=== PATIENT | male | born 1995 | race Two or more races ===

== ENCOUNTER 2020-06-18 16:09 | Outpatient (REF) | payer MEDICARE, MEDICAID, SELFPAY | END 2020-06-18 16:10 | disposition home or self-care (01) | LOC: HO.LAB 16:09 | PROVIDERS: Visit Provider Nurse Practitioner Family | DX: Z20.828 Contact with and (suspected) exposure to other viral communicable diseases (principal) | CPT/HCPCS: U0003 ==

== ENCOUNTER 2021-07-23 16:49 | Outpatient (REF) | payer MEDICARE, MEDICAID, SELFPAY ==
[2021-07-23 18:00] LABS: Influenza A PCR POSITIVE (Negative); Influenza B PCR NEGATIVE (Negative); Resp Syncy Virus RNA Qual PCR NEGATIVE (Negative); SARS COV2 PCR INHOUSE POSITIVE (Negative)
== END 2021-07-23 16:50 | disposition home or self-care (01) ==
LOC: HO.LNP 16:49
PROVIDERS: Visit Provider Physician Assistant
DX: Z20.822 Contact with and (suspected) exposure to COVID-19 (principal); B34.9 Viral infection, unspecified
CPT/HCPCS: 0241U

== ENCOUNTER 2024-01-28 10:24 | Outpatient (AMB) | payer MEDICARE, MEDICAID, SELFPAY ==
[2024-01-28 10:30] VITALS: BP 186/140; PULSE 78; O2SAT 98; BMI 31.6
--- NOTE | 2024-01-28 10:30 | MHC.PC.OV ---
Vital Signs 01/28/24 10:30 Height 5 ft 8 in Weight 208 lb BMI 31.6 BP 186/140 H Blood Pressure Location Lt brachial Position Sitting Pulse 78 Pulse Source Pulse Oximeter Pulse Oximetry (%) 98 Oxygen Delivery Method Room Air Intake Visit Reasons: NF PT'S-BLOOD PRESSUE 210/132 Corporate Wellness Coordinator Required: No Allergies No Known Allergies Allergy (Verified 01/28/24 11:07) Medication List - Last Reconciled 01/28/24 by Alirio Vargas MD blood pressure monitor As directed Tobacco use date assessed: 01/28/24 Dental Screening Dental Screen Date: 01/28/24 HPI NF PT'S-BLOOD PRESSUE 210/132 HPI Details Patient comes in today for persistently elevated blood pressure readings lately He used to take HCTZ 12.5 mg QD but has not been back for follow up since his last appointment with his PCP (Luther Pastor) on 02/04/2021 States that he has not been taking his BP med since mid 2020 when his Rx ran out Recently has been getting high BP readings and at one time, it was as high as 210/132 mm, which prompted him to call and ask for an appointment He reports that he has a strong family Hx of high blood pressure and that both of his parents have high blood pressure and are on blood pressure meds States that he feels okay and denies any headaches or dizziness Denies any chest pains, no SOB No nausea/vomiting, no abdominal pain No change in bowel habits noted [facility] Medical History (Updated 01/28/24 @ 11:21 by Alirio Vargas MD) Obesity (BMI 30-39.9) Essential (primary) hypertension Surgical History (Updated 01/28/24 @ 11:20 by Alirio Vargas MD) No pertinent past surgical history Family History Father Hypertension Mother Hypertension Social History Housing: Apartment Alcohol intake: current Alcohol intake frequency: holidays/special occasions only Patient Tobacco Use Status: Never used Tobacco e-Cigarette/Vaping Use: Never Used Second Hand Smoke Exposure: Yes service: No Current occupational status: employed Current occupation: [employer] Cognitive needs: No Hearing needs: No Vision needs: No Questionnaire PHQ-9 Over the last 2 weeks, how often have you been bothered by any of the following problems? 1. Little interest or pleasure in doing things: not at all 2. Feeling down, depressed, or hopeless: not at all 3. Trouble falling or staying asleep, or sleeping too much: not at all 4. Feeling tired or having little energy: not at all 5. Poor appetite or overeating: not at all 6. Feeling bad about yourself - or that you are a failure or have let yourself or your family down: not at all 7. Trouble concentrating on things, such as reading the newspaper or watching television: not at all 8. Moving or speaking so slowly that other people could have noticed. Or the opposite - being so fidgety or restless that you have been moving around a lot more than usual: not at all 9. Thoughts that you would be better off or of hurting yourself in some way: not at all Total score: 0 Depression Screening Interpretation: Negative Depression Screening Done: Yes 00491 - PHQ-9 Billing: Yes Source: Developed by Drs. Wilson Sanchez, Genie Perez, Arnoldo Lubin and colleagues, with an educational samia from [employer] Thrive Questionnaire Date Thrive assessed: 01/28/24 I am a: Patient What is your living situation today?: I have a steady place to live Within the past 12 months, did the food you bought not last and you didn't have the money to get more?: Never true Within the past 12 months, did you worry whether your food would run out before you got money to buy more?: Never true Do you have trouble paying for medicines?: No Do you have trouble getting transportation to medical appointments?: No Do you have trouble paying your heating and electricity bill?: No Do you have trouble taking care of your child, family member or friend?: No Do you have trouble with day-to-day activities such as bathing, preparing meals, shopping, managing finances, etc.?: No Are you currently unemployed and looking for a job?: No Are you interested in more education?: No Please select the resources that you would like help with: None Currently or been in a relationship where the following occur: No concerns reported THRIVE Score: 0 AUDIT C Alcohol Use Questionnaire (AUDIT-C) 1. How often do you have a drink containing alcohol?: Never 3. How often do you have six or more drinks on one occasion?: Never Total Score: 0 Score Reviewed/Action Taken: Yes CHARITY-7 AMB Questionnaire CHARITY-7 Date CHARITY - 7 assessed: 01/28/24 Feeling nervous, anxious, or on edge: 0 = Not at all Not being able to stop or control worryin = Not at all Worrying too much about different things: 0 = Not at all Trouble relaxin = Not at all Being so restless that it is hard to sit still: 0 = Not at all Becoming easily annoyed or irritable: 0 = Not at all Feeling afraid as if something awful might happen: 0 = Not at all Total CHARITY-7 score (0-4 normal; 5-9 mild; 10-14 moderate; 15-21 severe): 0 Source: Developed by Drs. Wilson Sanchez, Genie Perez, Arnoldo Lubin and colleagues, with an educational samia from [employer] CHARITY-7 Assessment Billing CHARITY-7 Assessment Tool: CHARITY-7 Assessment 14457 Review of Systems Const Denies chills, Denies fatigue, Denies fever(s) and Denies headache(s) ENT Denies dysphagia, Denies dizziness, Denies otalgia, Denies headache(s), Denies neck pain, Denies odynophagia and Denies sore throat Card Denies chest pain, Denies palpitations and Denies dyspnea Resp Denies cough and Denies dyspnea GI Denies abdominal pain, Denies constipation, Denies dysphagia, Denies heartburn, Denies diarrhea, Denies nausea, Denies odynophagia and Denies vomiting Denies dysuria and Denies nocturia Musc Denies neck pain Neuro Denies dizziness and Denies headache(s) Endo Denies fatigue and Denies palpitations Physical exam (Primary Care) Vital Signs: Last Vital Signs Pulse 78 01/28/24 10:30 BP 186/140 H 01/28/24 10:30 Pulse Ox 98 01/28/24 10:30 Oxygen Delivery Method Room Air 01/28/24 10:30 BMI result Body Mass Index 31.6 Tobacco/Smoking Status: Tobacco use Status Tobacco use date assessed 01/28/24 01/28/24 10:31 Patient Tobacco Use Status Never used Tobacco 01/28/24 10:31 e-Cigarette/Vaping Use Never Used 01/28/24 10:31 PHQ-9: PHQ-9 Score PHQ-9: Total score 0 01/28/24 10:45 Depression Screening Interpretation: Negative Thrive Assessment: Date of Thrive Assessment Date Thrive assessed 02/04/21 01/28/24 10:31 Currently or been in a relationship where the following occur: No concerns reported Const General: no acute distress and alert HENMT Throat: Yes posterior oropharynx normal and Yes tonsils normal (no TP congestion) Neck Neck: Yes no lymphadenopathy and Yes supple Thyroid: Thyroid normal Resp Auscultation: clear to auscultation bilaterally, no rales and no wheezes Cardio Rate: regular rate Rhythm: regular rhythm Heart sounds: no murmurs GI Palpation (GI): Soft to palpation and nontender Auscultation: normal bowel sounds General: Yes no CVA tenderness Back/Spine/Pelvis Back: no CVA tenderness Thoracic/Lumbar Spine: thoracic and lumbar spine normal to inspection Skin Rashes: no rashes Extrem General: Yes no clubbing, cyanosis or edema Assessment and Plan Assessment & Plan (1) Essential (primary) hypertension: Code(s): I10 - Essential (primary) hypertension Plan: Reinforced low sodium diet - goal is BP of 120/80 mm or less Have discussed with patient the dangers/implications and long-term health consequences of uncontrolled blood pressure and emphasized the importance of BP control Will start patient on Lisinopril-HCT 10-12.5 mg QD He is instructed to continue monitoring his blood pressure regularly (2) Obesity (BMI 30-39.9): Code(s): E66.9 - Obesity, unspecified Plan: Reinforced diet/exercise as tolerated/lose weight Plan Follow up with PCP in 2 to 3 months Medications: New lisinopril-hydrochlorothiazide 10-12.5 mg 1 tab PO DAILY 30 days 30 tabs 3RF I10 - Essential (primary) hypertension Coding Level of Care Code Est Pt Level 3 (25102) Diagnoses Essential (primary) hypertension I10 Obesity (BMI 30-39.9) E66.9 Additional Codes CHARITY-7 Assessment Billing - CHARITY-7 Assessment Tool: CHARITY-7 Assessment 39804 ([id number])
== END 2024-01-28 11:17 | disposition home or self-care (01) ==
PROVIDERS: PCP Physician Assistant; Visit Provider Internal Medicine
DX: I10 Essential (primary) hypertension (principal); E66.9 Obesity, unspecified; Z68.31 Body mass index [BMI] 31.0-31.9, adult
CPT/HCPCS: 99213

== ENCOUNTER 2024-04-20 14:48 | Outpatient (AMB) | payer MEDICARE, MEDICAID, SELFPAY ==
--- NOTE | 2024-04-20 14:49 | MHC.PC.OV ---
Intake Visit Reasons: 2/3 Month F/U Allergies No Known Allergies Allergy (Verified 01/28/24 11:07) Tobacco use date assessed: 01/28/24 Dental Screening Dental Screen Date: 01/28/24 [facility] Medical History (Updated 01/28/24 @ 11:21 by Alirio Vargas MD) Obesity (BMI 30-39.9) Essential (primary) hypertension Surgical History (Updated 01/28/24 @ 11:20 by Alirio Vargas MD) No pertinent past surgical history Family History Father Hypertension Mother Hypertension Social History Housing: Apartment Alcohol intake: current Alcohol intake frequency: holidays/special occasions only Patient Tobacco Use Status: Never used Tobacco e-Cigarette/Vaping Use: Never Used Second Hand Smoke Exposure: Yes service: No Current occupational status: employed Current occupation: [employer] Cognitive needs: No Hearing needs: No Vision needs: No Questionnaire Thrive Questionnaire Date Thrive assessed: 01/28/24 Are you currently unemployed and looking for a job?: No CHARITY-7 AMB Questionnaire CHARITY-7 Date CHARITY - 7 assessed: 01/28/24 Source: Developed by Drs. Wilson Sanchez, Genie Perez, Arnoldo Lubin and colleagues, with an educational samia from [employer]. Physical exam (Primary Care) Tobacco/Smoking Status: Tobacco use Status Tobacco use date assessed 01/28/24 01/28/24 10:31 Patient Tobacco Use Status Never used Tobacco 01/28/24 10:31 e-Cigarette/Vaping Use Never Used 01/28/24 10:31 Thrive Assessment: Date of Thrive Assessment Date Thrive assessed 01/28/24 01/28/24 11:12 Coding
[2024-04-20 14:53] VITALS: BP 130/82; PULSE 68; O2SAT 99; BMI 32.7
--- NOTE | 2024-04-20 14:57 | A.OFFVIS_ITS ---
Intake Vital Signs 04/20/24 14:53 04/20/24 15:02 Height 5 ft 8 in Weight 215 lb BMI 32.7 32.7 BP 130/82 Blood Pressure Location Lt brachial Position Sitting Pulse 68 Pulse Source Pulse Oximeter Pulse Oximetry (%) 99 Oxygen Delivery Method Room Air Intake Visit Reasons: PE Intake Note: Patient is here for an Annual Wellness Visit and BP F/U. Instrumentation Specialist Required: No Accompanied by: Self / Same As Patient Allergies No Known Allergies Allergy (Verified 04/20/24 15:02) Medication List - Last Reconciled 04/20/24 by Crow Pastor PA-C blood pressure monitor As directed lisinopril-hydrochlorothiazide 10-12.5 mg 1 tab PO DAILY 30 days HPI PE HPI Details Patient is a 28-year-old male here today for annual wellness visit. Patient's past medical history significant for hypertension Today we discussed patient's tangirnaq of care and end of life planning. We did discuss and review his comprehensive care plan which was skin to documents Vaccines: Patient is up-to-date with tetanus, and COVID vaccines, now willing to get flu vaccine HPI Comments History of Present Illness Details reviewed past medical history- yes reviewed surgical / hospitalization history- yes reviewed current medications- yes reviewed family history- yes home safety throw rugs? grab bars? raised toilet seat? working smoke detectors? activities of daily living difficulty bathing or showering? difficulty dressing? difficulty using the toilet? difficulty getting in and out of bed? difficulty walking? receives help from other person's with any of the above tasks? instrumental activities of daily living uses telephone - gets to place out of walking distance- go shopping for groceries- repairs own meals- does own minor home maintenance- does own laundry- does own housework- manages own money- currently takes medication- end of life planning discussed advanced directives- yes advanced directives on file? discussed wishes expressed in advanced directives. fall risk have you had any falls with injuries in the past year? have you had 2 or more falls in the past year? fall risk assessment: [facility] Medical History (Updated 04/20/24 @ 15:07 by Crow Pastro PA-C) Obesity (BMI 30-39.9) Essential (primary) hypertension Surgical History No pertinent past surgical history Family History Father Hypertension Mother Hypertension Social History Housing: Apartment Alcohol intake: current Alcohol intake frequency: holidays/special occasions only Patient Tobacco Use Status: Never used Tobacco e-Cigarette/Vaping Use: Never Used Second Hand Smoke Exposure: Yes service: No Current occupational status: employed Current occupation: [employer] Cognitive needs: No Hearing needs: No Vision needs: No Questionnaire Mini Mental State Exam (MMSE) Orientation What is the (year) (season) (date) (day) (month)?: year and season Where are we (state) (county) (town or city) (hospital) (floor)?: town or city Attention & Calculation (CHOOSE ONE) Spell WORLD backwards (DLROW): 3 letters Score Score: 6 Activity of Daily Living Bathing - sponge bath, tub bath or shower: receives no assistance (gets in/out by self, if usual bathing means Dressing - getting clothes from closets & drawers, including inner/outer garments & fasteners.: gets clothes & gets completely dressed without help Toileting - going to the 'toilet room' for urine/bowel elimination & cleaning self/arranging clothes: goes to toilet room, cleans self, arranges clothes without help Transfer: moves in & out of bed and chair without help (may use support object) Continence: controls urination/bowel movements completely by self Feeding: feeds self without help Total Score: 0 Information obtained from: patient Using telephone: independent Traveling: independent Shopping: independent Preparing meals: independent Housework: independent Taking medicine: independent Managing money: independent PHQ-9 Over the last 2 weeks, how often have you been bothered by any of the following problems? 1. Little interest or pleasure in doing things: not at all 2. Feeling down, depressed, or hopeless: not at all 3. Trouble falling or staying asleep, or sleeping too much: not at all 4. Feeling tired or having little energy: not at all 5. Poor appetite or overeating: not at all 6. Feeling bad about yourself - or that you are a failure or have let yourself or your family down: not at all 7. Trouble concentrating on things, such as reading the newspaper or watching television: not at all 8. Moving or speaking so slowly that other people could have noticed. Or the opposite - being so fidgety or restless that you have been moving around a lot more than usual: not at all 9. Thoughts that you would be better off or of hurting yourself in some way: not at all Total score: 0 Depression Screening Interpretation: Negative Depression Screening Done: Yes 84359 - PHQ-9 Billing: Yes Source: Developed by Drs. Wilson Sanchez, Genie Perez, Arnoldo Lubin and colleagues, with an educational samia from [employer]. Physical Exam Vital Signs: Last Vital Signs Pulse 68 04/20/24 14:53 BP 130/82 04/20/24 14:53 Pulse Ox 99 04/20/24 14:53 Oxygen Delivery Method Room Air 04/20/24 14:53 BMI result Body Mass Index 32.7 HEENT Other: hearing screening whisper test- pass Eyes Other: vision screening- 20 20 OS OD OU Other: urinary incontinence? no Neuro Other: balance Romberg- normal tandem walk test- able walk-in turned test- able rise from sit to stand- within 2 seconds Office Procedures Flu Questionnaire Does the patient have a severe egg allergy?: No Does the patient have severe life threatening allergies?: No Does the patient have a fever or illness today?: No Has the patient ever had Guillain-[place] Syndrome?: No Has the patient ever had any past reaction to a flu shot?: No Immunizations Fluarix Triv 8211-9163 (PF) 45 mcg (15 mcg x 3)/0.5 mL IM syringe Performing Provider: Crow Pastor PA-C [place] [facility] [place] [facility] Administered by: DUTCH Castle on 04/20/24 15:29 Dose Route Admin Location Dispensed Lot Number Expiration Date [facility] Retail Shift Leader 0.5 mL IM Left Deltoid 0.5 mL [id number] 01/16/25 [id number] Health Plan One VIS Given Date VIS Provided VIS Publication Date 04/20/24 Single Vaccine 21 Eligibility Eligibility Date Funding Source Not [facility] Eligible 04/20/24 Private Assessment & Plan Assessment & Plan (1) Annual wellness visit: Code(s): Z00.00 - Encounter for general adult medical examination without abnormal findings Plan: as per HPI Orders: Orders Complete Blood Count no Diff Today I10 - Essential (primary) hypertension Comprehensive [place]. Panel Fast Today I10 - Essential (primary) hypertension Lipid Panel Today I10 - Essential (primary) hypertension Microalbumin, Random (w Creat) Today I10 - Essential (primary) hypertension Influenza 5451-5600 Immunization Today Z23 - Encounter for immunization Quality Reporting (2019) Depression/Bipolar (159/160/161/177) PHQ-9: Total score: 0 Coding Level of Care Code Medicare First (G0438) Diagnoses Annual wellness visit Z00.00 CPT Codes Advance Care Planning - Time spent: 1-15 minutes, not on file ([id number]) Advance Care Planning Advance Care Planning discussion: Exists, not on file Date of discussion: 04/20/24 Forms completed: MOLST Time spent: 1-15 minutes, not on file Actual minutes spent: 3
[2024-04-20 15:02] VITALS: BMI 32.7
== END 2024-04-20 15:30 | disposition home or self-care (01) ==
PROVIDERS: PCP Physician Assistant; Visit Provider Physician Assistant
DX: Z00.00 Encounter for general adult medical examination without abnormal findings (principal); Z23 Encounter for immunization

== ENCOUNTER → 2024-04-20 14:48 | Outpatient (BNVA) | payer MEDICARE, MEDICAID, SELFPAY | PROVIDERS: PCP Physician Assistant; Visit Provider Physician Assistant | DX: Z00.00 Encounter for general adult medical examination without abnormal findings (principal); Z23 Encounter for immunization; I10 Essential (primary) hypertension | CPT/HCPCS: 90471; 90656 ==

== ENCOUNTER 2024-09-08 10:39 | Outpatient (AMB) | payer MEDICARE, MEDICAID, SELFPAY ==
--- NOTE | 2024-09-08 10:41 | MHC.PC.OV ---
Vital Signs 09/08/24 10:46 Height 5 ft 8 in Weight 215 lb 4 oz BMI 32.7 BP 180/130 H Blood Pressure Location Lt brachial Position Sitting Pulse 66 Pulse Source Pulse Oximeter Temp 97.1 F Temp Source Temporal Artery Scan Pulse Oximetry (%) 98 Oxygen Delivery Method Room Air Intake Visit Reasons: Fever , cold ,sorethroat Intake Note: Patient presents with a sore throat for the past two days, accompanied by a runny nose and generalized weakness. Radio Communications Mechanician Required: No Accompanied by: Self / Same As Patient Allergies No Known Allergies Allergy (Verified 09/08/24 10:57) Medication List - Last Reconciled 09/08/24 by Crow Pastor PA-C blood pressure monitor As directed lisinopril-hydrochlorothiazide 10-12.5 mg 1 tab PO DAILY Tobacco use date assessed: 09/08/24 Dental Screening Dental Screen Date: 01/28/24 HPI Fever , cold ,sorethroat HPI Details The patient is a 29-year-old male presenting with symptoms suggestive of a viral upper respiratory infection. Symptoms began approximately two days prior to the visit and include an itchy sensation in the ears, severe throat pain, nasal congestion, and episodic headaches. He also reports that his blood pressure has been elevated. There has been no known exposure to sick contacts at home. The patient has a history of essential hypertension for which he takes lisinopril with hydrochlorothiazide; however, he is running low on this medication and has approximately two days' supply remaining. He monitors his blood pressure with a manual cuff but questions its accuracy. The patient expresses concern about increasing the dose of his antihypertensive medication despite experiencing elevated blood pressure readings. [facility] Medical History (Updated 09/08/24 @ 11:00 by Crow Pastor PA-C) Obesity (BMI 30-39.9) Essential (primary) hypertension Surgical History No pertinent past surgical history Family History Father Hypertension Mother Hypertension Social History Housing: Apartment Alcohol intake: current Alcohol intake frequency: holidays/special occasions only Patient Tobacco Use Status: Never used Tobacco e-Cigarette/Vaping Use: Never Used Second Hand Smoke Exposure: Yes service: No Current occupational status: employed Current occupation: [employer] Cognitive needs: No Hearing needs: No Vision needs: No Questionnaire PHQ-9 Over the last 2 weeks, how often have you been bothered by any of the following problems? 1. Little interest or pleasure in doing things: not at all 2. Feeling down, depressed, or hopeless: not at all 3. Trouble falling or staying asleep, or sleeping too much: not at all 4. Feeling tired or having little energy: not at all 5. Poor appetite or overeating: not at all 6. Feeling bad about yourself - or that you are a failure or have let yourself or your family down: not at all 7. Trouble concentrating on things, such as reading the newspaper or watching television: not at all 8. Moving or speaking so slowly that other people could have noticed. Or the opposite - being so fidgety or restless that you have been moving around a lot more than usual: not at all 9. Thoughts that you would be better off or of hurting yourself in some way: not at all Total score: 0 Depression Screening Interpretation: Negative Depression Screening Done: Yes 63103 - PHQ-9 Billing: Yes Source: Developed by Drs. Wilson Sanchez, Genie Perez, Arnoldo Lubin and colleagues, with an educational samia from [employer]. Thrive Questionnaire Date Thrive assessed: 09/08/24 I am a: Patient What is your living situation today?: I have a steady place to live Within the past 12 months, did the food you bought not last and you didn't have the money to get more?: Never true Within the past 12 months, did you worry whether your food would run out before you got money to buy more?: Never true Do you have trouble paying for medicines?: No Do you have trouble getting transportation to medical appointments?: No Do you have trouble paying your heating and electricity bill?: No Do you have trouble taking care of your child, family member or friend?: No Do you have trouble with day-to-day activities such as bathing, preparing meals, shopping, managing finances, etc.?: No Are you currently unemployed and looking for a job?: No Are you interested in more education?: No Please select the resources that you would like help with: None Currently or been in a relationship where the following occur: No concerns reported THRIVE Score: 0 AUDIT C Alcohol Use Questionnaire (AUDIT-C) 1. How often do you have a drink containing alcohol?: Never 3. How often do you have six or more drinks on one occasion?: Never Total Score: 0 Score Reviewed/Action Taken: Yes CHARITY-7 AMB Questionnaire CHARITY-7 Date CHARITY - 7 assessed: 09/08/24 Feeling nervous, anxious, or on edge: 0 = Not at all Not being able to stop or control worryin = Not at all Worrying too much about different things: 0 = Not at all Trouble relaxin = Not at all Being so restless that it is hard to sit still: 0 = Not at all Becoming easily annoyed or irritable: 0 = Not at all Feeling afraid as if something awful might happen: 0 = Not at all Total CHARITY-7 score (0-4 normal; 5-9 mild; 10-14 moderate; 15-21 severe): 0 Source: Developed by Drs. Wilson Sanchez, Genie Perez, Arnoldo Lubin and colleagues, with an educational samia from [employer]. CHARITY-7 Assessment Billing CHARITY-7 Assessment Tool: CHARITY-7 Assessment 08845 Review of Systems Const Reports headache(s) Eyes Denies loss of vision ENT Denies vertigo, Denies dizziness, Reports headache(s), Reports nasal congestion and Reports sore throat Card Denies chest pain, Denies leg edema and Denies lightheadedness Resp Denies cough, Denies hemoptysis and Denies wheezing GI Denies abdominal pain, Denies melena, Denies constipation, Denies diarrhea and Denies vomiting Denies dysuria, Denies urinary frequency and Denies urinary urgency Musc Denies arthralgias, Denies joint swelling, Denies numbness and Denies tingling Neuro Denies Abnormal speech present, Denies behavioral changes, Denies vertigo, Denies dizziness, Reports headache(s), Denies loss of vision, Denies memory loss, Denies numbness and Denies tingling Psych Denies anxiety, Denies behavioral changes, Denies depression, Denies memory loss and Denies panic attacks Edwin/Lymph Denies easy bleeding and Denies easy bruising Aller/Immun Denies wheezing Physical exam (Primary Care) Vital Signs: Last Vital Signs Temp 97.1 F 09/08/24 10:46 Pulse 66 09/08/24 10:46 BP 180/130 H 09/08/24 10:46 Pulse Ox 98 09/08/24 10:46 Oxygen Delivery Method Room Air 09/08/24 10:46 BMI result Body Mass Index 32.7 Tobacco/Smoking Status: Tobacco use Status Tobacco use date assessed 09/08/24 09/08/24 10:42 Patient Tobacco Use Status Never used Tobacco 09/08/24 10:41 e-Cigarette/Vaping Use Never Used 09/08/24 10:41 PHQ-9: PHQ-9 Score PHQ-9: Total score 0 09/08/24 10:42 Depression Screening Interpretation: Negative Thrive Assessment: Date of Thrive Assessment Date Thrive assessed 09/08/24 09/08/24 10:42 Currently or been in a relationship where the following occur: No concerns reported Const General: healthy appearing, no acute distress, alert and awake Nutritional Appearance: well nourished Orientation/consciousness: oriented to person, oriented to place and oriented to time HENMT Ears: TM's normal bilaterally General nose exam: Normal nasal mucous membranes and turbinates present Eyes Conjunctivae: conjunctivae normal Sclerae: sclerae normal Pupils: Equal, round and reactive pupils present Neck Neck: Yes no lymphadenopathy and Yes no JVD Thyroid: Thyroid normal Carotids: no bruits Resp Effort & Inspection: normal respiratory effort and not tachypneic Auscultation: no crackles, no rales, no rhonchi and no wheezes Cardio Rate: regular rate Rhythm: regular rhythm Heart sounds: no murmurs and normal S1 and S2 GI Palpation (GI): Soft to palpation, nontender, no hepatomegaly and no splenomegaly Auscultation: normal bowel sounds Skin General skin exam: no rashes or lesions noted and dry skin Neuro General: oriented to person, oriented to place and oriented to time Cranial nerves: Yes Equal, round and reactive pupils present Speech: No Abnormal speech present Gait exam (Neuro): Normal gait present Motor exam (neuro): no tremor noted Extrem Right upper extremity: full ROM Left upper extremity: full ROM Right lower extremity: full ROM; no edema Left lower extremity: full ROM; no edema Psych Mental Status: mental status grossly normal Speech and movement: Normal speech and movement present Affect: normal affect Attitude: cooperative Thought process: Normal thought process present Coding Level of Care Code Est Pt Level 4 (81642) Diagnoses Viral upper respiratory tract infection J06.9 URI type: unspecified viral URI Primary hypertension I10 Hypertension type: primary hypertension Additional Codes CHARITY-7 Assessment Billing - CHARITY-7 Assessment Tool: CHARITY-7 Assessment 54404 ([id number]) PHQ-9 - 82931 - PHQ-9 Billing: Yes ([id number]) Assessment & Plan Assessment & Plan (1) Upper respiratory infection: Code(s): J06.9 - Acute upper respiratory infection, unspecified Category: Medical Qualifiers: URI type: unspecified viral URI Qualified Code(s): J06.9 - Acute upper respiratory infection, unspecified Plan: Patient's signs symptoms most consistent with an upper respiratory infection. Triple tested for viruses today in office. Rapid strep negative. Will prophylactically prescribe amoxicillin 875 mg b.i.d. (2) HTN (hypertension): Code(s): I10 - Essential (primary) hypertension Category: Medical Qualifiers: Hypertension type: primary hypertension Qualified Code(s): I10 - Essential (primary) hypertension Plan: We discussed patient's elevated blood pressure. Elevated blood pressure can be also in the setting of his acute illness.. Has been using his blood pressure medication prior somewhat regularly. We discussed the possibility of increasing his lisinopril and hydrochlorothiazide dose. Discussed the management of hypertension, including continuing current medication with refills and considering an increased dosage if blood pressure readings remain elevated. We agreed on a low-sodium diet and the importance of monitoring blood pressure with a reliable device. Goal blood pressures to be below 140/90 Orders: Orders SARS-CoV2/FLU/RSV Today J06.9 - Acute upper respiratory infection, unspecified AMB Rapid Strep Screen Today J02.9 - Acute pharyngitis, unspecified Medications: New amoxicillin 875 mg PO BID 7 days 14 tabs 0RF J06.9 - Acute upper respiratory infection, unspecified Refilled lisinopril-hydrochlorothiazide 10-12.5 mg 1 tab PO DAILY 90 tabs 1RF I10 - Essential (primary) hypertension blood pressure monitor As directed 1 ea 0RF I10 - Essential (primary) hypertension
[2024-09-08 10:46] VITALS: BP 180/130; PULSE 66; TEMP 36.2; O2SAT 98; BMI 32.7
--- OUTSIDE RECORDS SUMMARY | 2024-09-08 11:49 | XMS_ITS | Encounter Summary ---
Author Organization [facility] Address [address] [place] [address] Phone Care Team Providers Care Metallography Teacher Name Role Phone Quinn Nino MD Primary Care Provider [phone] Encounter Details Date Type Department Care Team (Late st Contact Info) Description 03/05/2017 Conversion Encounter [facility] [place] [address] [place] [address] Social History Tobacco Use Types Packs/Day Years Used Date Smoking Tobacco: Never Comments:Never smoker Sex and Gender Information Value Date Recorded Sex Assigned at Not on file Legal Sex Male 4:51 PM EDT Gender Identity Not on file Sexual Orientation Not on file documented as of this encounter Plan of Treatment Not on file documented as of this encounter Visit Diagnoses Not on filedocumented in this encounter Care Teams Metallography Teacher Relationship Specialty Start Date End Date Quinn Nino MD [address] [place] [address] PCP - General 02/27/17 10/21/22 documented as of this encounter
--- OUTSIDE RECORDS SUMMARY | 2024-09-08 11:49 | XMS_ITS | Encounter Summary ---
Author Organization [facility] Address [address] [place] [address] Phone Care Team Providers Care Pretzel Twisting Machine Operator Name Role Phone Quinn Nino MD Primary Care Provider [phone] Encounter Details Date Type Department Care Team (Late st Contact Info) Description 05/08/2011 Documentation EM Family Medicine [address] [place], [place] [id number] Family Medicine, Physician [address] [place] [address] Social History Tobacco Use Types Packs/Day Years Used Date Smoking Tobacco: Never Assessed Sex and Gender Information Value Date Recorded Sex Assigned at Not on file Legal Sex Male 4:51 PM EDT Gender Identity Not on file Sexual Orientation Not on file documented as of this encounter Plan of Treatment Not on file documented as of this encounter Visit Diagnoses Not on filedocumented in this encounter Care Teams Pretzel Twisting Machine Operator Relationship Specialty Start Date End Date Quinn Nino MD [address] [place] [address] [place] [address] PCP - General 02/27/17 10/21/22 documented as of this encounter
--- OUTSIDE RECORDS SUMMARY | 2024-09-08 11:49 | XMS_ITS | Encounter Summary ---
Author Organization [facility] Address [address] [place] [address] Phone Care Team Providers Care Real Estate Instructor Name Role Phone Quinn Nino MD Primary Care Provider [phone] Encounter Details Date Type Department Care Team (Late st Contact Info) Description 09/28/2009 Documentation EM Family Medicine [address] [place] [address] Family Medicine, Physician [address] [place] [address] Social History Tobacco Use Types Packs/Day Years [...] on filedocumented in this encounter Care Teams Real Estate Instructor Relationship Specialty Start Date End Date Quinn Nino MD [address] [place] [address] [place] [address] PCP - General 02/27/17 10/21/22 documented as of this encounter
--- OUTSIDE RECORDS SUMMARY | 2024-09-08 11:49 | XMS_ITS | Encounter Summary ---
Author Organization [facility] Address [address] [place] [address] Phone Care Team Providers Care Welt Edge Rounder Name Role Phone Quinn Nino MD Primary Care Provider [phone] Encounter Details Date Type Department Care Team (Late st Contact Info) Description 09/28/2009 Documentation EM Family Medicine [address] [place] [address] Family Medicine, Physician [address] [place] [address] Social History Tobacco Use Types Packs/Day Years [...] on filedocumented in this encounter Care Teams Welt Edge Rounder Relationship Specialty Start Date End Date Quinn Nino MD [address] [place] [address] [place] [address] PCP - General 02/27/17 10/21/22 documented as of this encounter
--- OUTSIDE RECORDS SUMMARY | 2024-09-08 11:49 | XMS_ITS | Encounter Summary ---
Author Organization [facility] Address [address] [place] [address] Phone Care Team Providers Care Blacking Machine Operator Name Role Phone Quinn Nino MD Primary Care Provider [phone] Encounter Details Date Type Department Care Team (Late st Contact Info) Description 05/25/2014 Documentation EM Family Medicine [address] [place] [address] Family Medicine, Physician [address] [place] [address] Social History Tobacco Use Types Packs/Day Years [...] on filedocumented in this encounter Care Teams Blacking Machine Operator Relationship Specialty Start Date End Date Quinn Nino MD [address] [place] [address] PCP - General 02/27/17 10/21/22 documented as of this encounter
--- OUTSIDE RECORDS SUMMARY | 2024-09-08 11:49 | XMS_ITS | Clinical Summary ---
Author Organization [facility] Address [address] [place] [address] Phone Care Team Providers Care Design Drafter Name Role Phone Unavailable Primary Care Provider Unavailabl e Immunizations Immunization Administration Dates Next Due DTP 03/13/1995,1994,1994 DTaP 5 11/22/1998,02/11/1996 HPV, Quadrivalent 09/28/2012,10/09/2010 Hep B, ped/adol 08/11/1995,1994,1994 Hib (PRP-T) 11/13/1995, 5,1994, 995 IPV 11/22/1998,199 5,1994, 995 Influenza Split 10/09/2010 Influenza, injectable, trivalent 05/16/2008 Influenza, intranasal, trivalent 09/28/2012,04/19 MMR 11/22/1998,11/10/1995 Meningococcal Conj (Menactra) MCV4P 05/16/2008 Tdap 04/16/2006 Varicella 05/16/2008,05/12/1996 Family History Relation Name Status Comments Brother 1 Alive Brother: Alive and well, Alive and well Brother 2 Alive Brother: Alive and well, Alive and well Father Alive Father: Alive a nd well Mother Alive Mother: Alive a nd well Other Family history of Hyperlipidemia, Family history of Asthma, Family history of Hypertension, Family history of Diabetes mellitus, Family history of Cancer, colon Sister Alive Sister: Alive a nd well Social History Tobacco Use Types Packs/Day Years Used Date Smoking Tobacco: Never Comments:Never smoker Sex and Gender Information Value Date Recorded Sex Assigned at Not on file Legal Sex Male 4:51 PM EDT Gender Identity Not on file Sexual Orientation Not on file Last Filed Vital Signs Vital Sign Reading Time Taken Comments Blood Pressure 138/98 09/28/2012 12:00 AM EDT Pulse - - Temperature 36.6 ??C (97.9 ??F) 04/05/2012 12:00 AM E DT Respiratory Rate - - Oxygen Saturation - - Inhaled Oxygen Concentration - - Weight 97.1 kg (214 lb) 09/28/2012 12:00 AM EDT Height 167.1 cm (5' 5.8 ) 09/28/2012 12:00 AM ED T Body Mass Index 34.75 09/28/2012 12:00 AM EDT Plan of Treatment Health Maintenance Due Date Last Done Comments HPV Vaccines (3 - Male 3-dose series) 12/21/2012 09/28/2012, 10/09/2010 DTaP,Tdap,and Td Vaccines (7 - Td or Tdap) 04/16/2016 04/16/2006, 11/22/1998, 02/11/1996, Additional history exists Influenza Vaccines (#1) 2024 09/29/19 13, 05/06/2011, 10/09/2010, Additional history exists COVID-19 Vaccine ( - 2023- season) 2024 Hepatitis B Vaccines Completed 08/11/1995, 1994, 1994 HIB Vaccines Completed 11/13/1995, 02/18, 1994, Additional history exists IPV Vaccines Completed 11/22/1998, 02/18, 1994, Additional history exists MMR Vaccines Completed 11/22/1998, 11/10/1995 Meningococcal Vaccine Aged Out 05/16/2008 No ramirez paloma eligible based on patient's age to complete this topic Varicella Vaccines Completed 05/16/2008, 05/12/1996 Hepatitis A Vaccines Aged Out No long er eligible based on patient's age to complete this topic Men B Vaccine Aged Out No longer elig ible based on patient's age to complete this topic Pneumococcal Vaccine Aged Out No long er eligible based on patient's age to complete this topic
--- OUTSIDE RECORDS SUMMARY | 2024-09-08 11:49 | XMS_ITS | Clinical Summary ---
Author Organization [facility] Address [address] [place] [address] Care Team Providers Care Automobile Locator Name Role Phone Unavailable Primary Care Provider Unavailabl e Social History Tobacco Use Types Packs/Day Years Used Date Smoking Tobacco: Never Assessed Sex and Gender Information Value Date Recorded Sex Assigned at Not on file Legal Sex Male 4:31 PM EST Gender Identity Not on file Sexual Orientation Not on file Plan of Treatment Health Maintenance Due Date Last Done Comments DTaP,Tdap,and Td Vaccines (1 - Tdap) 2013 Hepatitis B Vaccines (1 of 3 - 19+ 3-dose series) 2013 COVID-19 Vaccine (2023-2 5 season) 2024 Influenza Vaccine (#1) 2024 HIB Vaccines Aged Out No longer eligi ble based on patient's age to complete this topic HPV Vaccines Aged Out No longer eligi ble based on patient's age to complete this topic Hepatitis A Vaccines Aged Out No long er eligible based on patient's age to complete this topic IPV Vaccines Aged Out No longer eligi ble based on patient's age to complete this topic MMR Vaccines Aged Out No longer eligi ble based on patient's age to complete this topic Meningococcal ACWY Vaccine Aged Out N o longer eligible based on patient's age to complete this topic Meningococcal B Vacine Aged Out No lo nger eligible based on patient's age to complete this topic Pneumococcal Vaccine: Pediat rics (0 to 5 Years) and At-Risk Patients (6 to 64 Years) Aged Out No longer eligible b ased on patient's age to complete this topic RSV Immunization Patients Un serafin 20 months Aged Out No longer eligible b ased on patient's age to complete this topic Varicella Vaccines Aged Out No longer eligible based on patient's age to complete this topic
--- OUTSIDE RECORDS SUMMARY | 2024-09-08 11:49 | XMS_ITS | Encounter Summary ---
Author Organization [facility] Address [address] [place] [address] Phone Care Team Providers Care Math Teacher Name Role Phone Qiunn Nino MD Primary Care Provider [phone] Encounter Details Date Type Department Care Team (Late st Contact Info) Description 12/12/2011 Documentation EM Family Medicine [address] [place] [address] Family Medicine, Physician [address] [place] [address] Social History Tobacco Use Types Packs/Day Years [...] on filedocumented in this encounter Care Teams Math Teacher Relationship Specialty Start Date End Date Quinn Nino MD [address] [place] [address] [place] [address] PCP - General 02/27/17 10/21/22 documented as of this encounter
== END 2024-09-08 11:12 | disposition home or self-care (01) ==
LOC: HO.HMCH 10:39
PROVIDERS: PCP Physician Assistant; Visit Provider Physician Assistant
DX: J06.9 Acute upper respiratory infection, unspecified (principal); I10 Essential (primary) hypertension; J02.9 Acute pharyngitis, unspecified

== ENCOUNTER 2024-09-08 10:39 | Outpatient (REF) | payer MEDICARE, MEDICAID, SELFPAY ==
--- OUTSIDE RECORDS SUMMARY | 2024-09-08 13:28 | XMS_ITS | Encounter Summary ---
Author Organization [facility] Address [address] [place] [address] Phone Care Team Providers Care Professor Of Religion Name Role Phone Quinn Nino MD Primary Care Provider [phone] Encounter Details Date Type Department Care Team (Late st Contact Info) Description 12/12/2011 Documentation EM Family Medicine [address] [place] [address] Family Medicine, Physician [address] [place] [address] Social History Tobacco Use Types Packs/Day Years [...] on filedocumented in this encounter Care Teams Professor Of Religion Relationship Specialty Start Date End Date Quinn Nino MD [address] [place] [address] [place] [address] PCP - General 02/27/17 10/21/22 documented as of this encounter
--- OUTSIDE RECORDS SUMMARY | 2024-09-08 13:29 | XMS_ITS | Encounter Summary ---
Author Organization [facility] Address [address] [place] [address] Phone Care Team Providers Care Data Warehousing Engineer Name Role Phone [place] Nino MD Primary Care Provider Encounter Details Date Type Department Care Team (Late st Contact Info) Description 09/28/2009 Documentation EM Family Medicine [address] [place] [address] Family Medicine, Physician [address] [place] [address] Social History Tobacco Use Types Packs/Day Years [...] on filedocumented in this encounter Care Teams Data Warehousing Engineer Relationship Specialty Start Date End Date Quinn Nino MD [address] [place] [address] [place] [address] PCP - General 02/27/17 10/21/22 documented as of this encounter
--- OUTSIDE RECORDS SUMMARY | 2024-09-08 13:29 | XMS_ITS | Encounter Summary ---
Author Organization [facility] Address [address] [place] [address] Phone Care Team Providers Care Plastics Nurse Name Role Phone Quinn Nino MD Primary Care Provider [phone] Encounter Details Date Type Department Care Team (Late st Contact Info) Description 09/28/2009 Documentation EM Family Medicine [address] [place] [address] Family Medicine, Physician [address] [place] [address] Social History Tobacco Use Types Packs/Day Years [...] on filedocumented in this encounter Care Teams Plastics Nurse Relationship Specialty Start Date End Date Quinn Nino MD [address] [place] [address] [place] [address] PCP - General 02/27/17 10/21/22 documented as of this encounter
--- OUTSIDE RECORDS SUMMARY | 2024-09-08 13:29 | XMS_ITS | Encounter Summary ---
Author Organization [facility] Address [address] [place] [address] Phone Care Team Providers Care Bouffant Curtain Machine Tender Name Role Phone uQinn Nino MD Primary Care Provider [phone] Encounter Details Date Type Department Care Team (Late st Contact Info) Description 05/08/2011 Documentation EM Family Medicine [address] [place], [place] [id number] Family Medicine, Physician [address] [place] [address] Social History Tobacco Use Types Packs/Day Years [...] on filedocumented in this encounter Care Teams Bouffant Curtain Machine Tender Relationship Specialty Start Date End Date Quinn Nino MD [address] [place] [address] [place] [id number] PCP - General 02/27/17 10/21/22 documented as of this encounter
--- OUTSIDE RECORDS SUMMARY | 2024-09-08 13:29 | XMS_ITS | Encounter Summary ---
Author Organization [facility] Address [address] [place] [address] Phone Care Team Providers Care Concaver Name Role Phone Quinn Nino MD Primary Care Provider [phone] Encounter Details Date Type Department Care Team (Late st Contact Info) Description 05/25/2014 Documentation EM Family Medicine [address] [place] [address] Family Medicine, Physician [address] [place] [address] Social History Tobacco Use Types Packs/Day Years [...] on filedocumented in this encounter Care Teams Concaver Relationship Specialty Start Date End Date Quinn Nino MD [address] [place] [address] PCP - General 02/27/17 10/21/22 documented as of this encounter
--- OUTSIDE RECORDS SUMMARY | 2024-09-08 13:29 | XMS_ITS | Clinical Summary ---
Author Organization [facility] Address [address] [place] [address] Phone Care Team Providers Care Storeroom Keeper Name Role Phone Unavailable Primary Care Provider [...]
--- OUTSIDE RECORDS SUMMARY | 2024-09-08 13:29 | XMS_ITS | Encounter Summary ---
Author Organization [facility] Address [address] [place] [address] Phone Care Team Providers Care Plastic Dolls Mold Filler Name Role Phone Quinn Nino MD Primary Care Provider [phone] Encounter Details Date Type Department Care Team (Late st Contact Info) Description 03/05/2017 Conversion Encounter [facility] [place] [address] [place] [address] Social History Tobacco Use Types Packs/Day Years [...] on filedocumented in this encounter Care Teams Plastic Dolls Mold Filler Relationship Specialty Start Date End Date Quinn Nino MD [address] [place] [address] PCP - General 02/27/17 10/21/22 documented as of this encounter
--- OUTSIDE RECORDS SUMMARY | 2024-09-08 13:29 | XMS_ITS | Clinical Summary ---
Author Organization [facility] Address [address] [place] [address] Care Team Providers Care Hourly Associate Name Role Phone Unavailable Primary Care Provider [...]
[2024-09-08 13:40] LABS: Influenza A PCR NEGATIVE (Negative); Influenza B PCR NEGATIVE (Negative); Resp Syncy Virus RNA Qual PCR NEGATIVE (Negative); SARS COV2 PCR INHOUSE POSITIVE (Negative)
== END 2024-09-08 10:40 | disposition home or self-care (01) ==
LOC: HO.LNP 10:39
PROVIDERS: PCP Physician Assistant; Visit Provider Physician Assistant
DX: U07.1 COVID-19 (principal); J06.9 Acute upper respiratory infection, unspecified; J02.9 Acute pharyngitis, unspecified; I10 Essential (primary) hypertension
CPT/HCPCS: 0241U; 87880; 96127; 99212

== ENCOUNTER 2024-10-19 13:53 | Outpatient (AMB) | payer MEDICARE, MEDICAID, SELFPAY ==
--- NOTE | 2024-10-19 14:11 | MHC.PC.OV ---
Vital Signs 10/19/24 14:12 Height 5 ft 8 in Weight 213 lb BMI 32.4 BP 138/102 H Blood Pressure Location Lt brachial Position Sitting Pulse 70 Pulse Source Pulse Oximeter Temp 97.5 F Temp Source Temporal Artery Scan Pulse Oximetry (%) 97 Oxygen Delivery Method Room Air Intake Visit Reasons: f/u HTN Personal Attendant Required: No Accompanied by: Spouse Allergies No Known Allergies Allergy (Verified 10/19/24 14:26) Tobacco use date assessed: 09/08/24 Dental Screening Dental Screen Date: 10/19/24 Did you have a dental visit in the last 12 months?: Yes Did you have a dental problem in the last 6 months where you did not have access to dental care?: No Was dental information given to patient?: Patient has dentist HPI f/u HTN HPI Details Patient is a 29-year-old male here today for follow-up visit. Patient has a past medical history significant for obesity and hypertension. He continues on lisinopril hydrochlorothiazide 10- 2.5 to which he has been more consistent with. Blood pressures seems to be a bit better though still slightly elevated. He admits to a high salt diet. He does not monitor his blood pressure at home and in interested in doing so. Of note patient's significant other does report that is Meliton does snore and has apneic episodes at night. Will try to set him up with a home sleep study to evaluate for obstructive sleep apnea which could be contributing to his higher blood pressures [facility] Medical History (Updated 10/19/24 @ 14:30 by Crow Pastor PA-C) Obesity (BMI 30-39.9) Essential (primary) hypertension Surgical History No pertinent past surgical history Family History Father Hypertension Mother Hypertension Social History Housing: Apartment Alcohol intake: current Alcohol intake frequency: holidays/special occasions only Patient Tobacco Use Status: Never used Tobacco e-Cigarette/Vaping Use: Never Used Second Hand Smoke Exposure: Yes service: No Current occupational status: employed Current occupation: [employer] Cognitive needs: No Hearing needs: No Vision needs: No Questionnaire Thrive Questionnaire Date Thrive assessed: 09/08/24 CHARITY-7 AMB Questionnaire CHARITY-7 Date CHARITY - 7 assessed: 09/08/24 Source: Developed by Drs. Wilson Sanchez, Genie Perez, Arnoldo Lubin and colleagues, with an educational samia from [employer]. Review of Systems Const Denies headache(s) Eyes Denies loss of vision ENT Denies vertigo, Denies dizziness, Denies headache(s) and Denies sore throat Card Denies chest pain, Denies leg edema and Denies lightheadedness Resp Denies cough, Denies hemoptysis and Denies wheezing GI Denies abdominal pain, Denies melena, Denies constipation, Denies diarrhea and Denies vomiting Denies dysuria, Denies urinary frequency and Denies urinary urgency Musc Denies arthralgias, Denies joint swelling, Denies numbness and Denies tingling Neuro Denies Abnormal speech present, Denies behavioral changes, Denies vertigo, Denies dizziness, Denies headache(s), Denies loss of vision, Denies memory loss, Denies numbness and Denies tingling Psych Denies anxiety, Denies behavioral changes, Denies depression, Denies memory loss and Denies panic attacks Edwin/Lymph Denies easy bleeding and Denies easy bruising Aller/Immun Denies wheezing Physical exam (Primary Care) Vital Signs: Last Vital Signs Temp 97.5 F 10/19/24 14:12 Pulse 70 10/19/24 14:12 BP 138/102 H 10/19/24 14:12 Pulse Ox 97 10/19/24 14:12 Oxygen Delivery Method Room Air 10/19/24 14:12 BMI result Body Mass Index 32.4 Tobacco/Smoking Status: Tobacco use Status Tobacco use date assessed 09/08/24 10/19/24 14:14 Patient Tobacco Use Status Never used Tobacco 10/19/24 14:14 e-Cigarette/Vaping Use Never Used 10/19/24 14:14 Thrive Assessment: Date of Thrive Assessment Date Thrive assessed 09/08/24 10/19/24 14:14 Const General: healthy appearing, no acute distress, alert and awake Nutritional Appearance: well nourished Orientation/consciousness: oriented to person, oriented to place and oriented to time HENMT Ears: TM's normal bilaterally General nose exam: Normal nasal mucous membranes and turbinates present Eyes Conjunctivae: conjunctivae normal Sclerae: sclerae normal Pupils: Equal, round and reactive pupils present Neck Neck: Yes no lymphadenopathy and Yes no JVD Thyroid: Thyroid normal Carotids: no bruits Resp Effort & Inspection: normal respiratory effort and not tachypneic Auscultation: no crackles, no rales, no rhonchi and no wheezes Cardio Rate: regular rate Rhythm: regular rhythm Heart sounds: no murmurs and normal S1 and S2 GI Palpation (GI): Soft to palpation, nontender, no hepatomegaly and no splenomegaly Auscultation: normal bowel sounds Skin General skin exam: no rashes or lesions noted and dry skin Neuro General: oriented to person, oriented to place and oriented to time Cranial nerves: Yes Equal, round and reactive pupils present Speech: No Abnormal speech present Gait exam (Neuro): Normal gait present Motor exam (neuro): no tremor noted Extrem Right upper extremity: full ROM Left upper extremity: full ROM Right lower extremity: full ROM; no edema Left lower extremity: full ROM; no edema Psych Mental Status: mental status grossly normal Speech and movement: Normal speech and movement present Affect: normal affect Attitude: cooperative Thought process: Normal thought process present Coding Level of Care Code Est Pt Level 4 (11925) Diagnoses Primary hypertension I10 Hypertension type: primary hypertension NEY (obstructive sleep apnea) G47.33 Assessment & Plan Assessment & Plan (1) HTN (hypertension): Code(s): I10 - Essential (primary) hypertension Category: Medical Qualifiers: Hypertension type: primary hypertension Qualified Code(s): I10 - Essential (primary) hypertension Plan: Patient's blood pressure remains slightly elevated. Will continue lisinopril hydrochlorothiazide. He is more determine now to make lifestyle changes, reduce sodium and lose weight. Will check in in 8 weeks and if blood pressure remains elevated will consider increase his blood pressure medication. Will send for home sleep study due to reports of apneic episodes and snoring at night. (2) NEY (obstructive sleep apnea): Code(s): G47.33 - Obstructive sleep apnea (adult) (pediatric) Category: Medical Plan: As above Orders: Orders RT home sleep study 10/19/24 G47.33 - Obstructive sleep apnea (adult) (pediatric) Medications: Refilled blood pressure monitor As directed 1 ea 0RF I10 - Essential (primary) hypertension lisinopril-hydrochlorothiazide 10-12.5 mg 1 tab PO DAILY 90 tabs 1RF I10 - Essential (primary) hypertension blood pressure monitor As directed 1 ea 0RF I10 - Essential (primary) hypertension
[2024-10-19 14:12] VITALS: BP 138/102; PULSE 70; TEMP 36.4; O2SAT 97; BMI 32.4
--- OUTSIDE RECORDS SUMMARY | 2024-10-19 16:35 | XMS_ITS | Clinical Summary ---
Author Organization [facility] Address [address] [place] [address] Care Team Providers Care Digital Operations Analyst Name Role Phone Unavailable Primary Care Provider [...]
--- OUTSIDE RECORDS SUMMARY | 2024-10-19 16:35 | XMS_ITS | Encounter Summary ---
Author Organization [facility] Address [address] [place] [address] Phone Care Team Providers Care Supplier Quality Name Role Phone Quinn Nino MD Primary Care Provider [phone] Encounter Details Date Type Department Care Team (Late st Contact Info) Description 09/28/2009 Documentation EM Family Medicine [address] [place] [address] Family Medicine, Physician [address] [place] [address] Social History Tobacco Use Types Packs/Day Years [...] on filedocumented in this encounter Care Teams Supplier Quality Relationship Specialty Start Date End Date Quinn Nino MD [address] [place] [address] [place] [address] PCP - General 02/27/17 10/21/22 documented as of this encounter
--- OUTSIDE RECORDS SUMMARY | 2024-10-19 16:35 | XMS_ITS | Clinical Summary ---
Author Organization [facility] Address [address] [place] [address] Phone Care Team Providers Care Header Dock Name Role Phone Unavailable Primary Care Provider [...]
--- OUTSIDE RECORDS SUMMARY | 2024-10-19 16:35 | XMS_ITS | Encounter Summary ---
Author Organization [facility] Address [address] [place] [address] Phone Care Team Providers Care Historiography Teacher Name Role Phone Quinn Nino MD Primary Care Provider [phone] Encounter Details Date Type Department Care Team (Late st Contact Info) Description 09/28/2009 Documentation EM Family Medicine [address] [place] [address] Family Medicine, Physician [address] [place] [address] Social History Tobacco Use Types Packs/Day Years [...] on filedocumented in this encounter Care Teams Historiography Teacher Relationship Specialty Start Date End Date Quinn Nino MD [address] [place] [address] [place] [address] PCP - General 02/27/17 10/21/22 documented as of this encounter
--- OUTSIDE RECORDS SUMMARY | 2024-10-19 16:35 | XMS_ITS | Encounter Summary ---
Author Organization [facility] Address [address] [place] [address] Phone Care Team Providers Care Service Captain Name Role Phone Quinn Nino MD Primary Care Provider [phone] Encounter Details Date Type Department Care Team (Late st Contact Info) Description 05/25/2014 Documentation EM Family Medicine [address] [place] [address] Family Medicine, Physician [address] [place], [place] [address] Social History Tobacco Use Types Packs/Day Years [...] on filedocumented in this encounter Care Teams Service Captain Relationship Specialty Start Date End Date Quinn Nino MD [address] [place] [address] PCP - General 02/27/17 10/21/22 documented as of this encounter
--- OUTSIDE RECORDS SUMMARY | 2024-10-19 16:35 | XMS_ITS | Encounter Summary ---
Author Organization [facility] Address [address] [place] [address] Phone Care Team Providers Care Processor Grain Name Role Phone Quinn Nino MD Primary Care Provider [phone] Encounter Details Date Type Department Care Team (Late st Contact Info) Description 05/08/2011 Documentation EM Family Medicine [address] [place], [place] [id number] Family Medicine, Physician [address] [place] [address] Social History Tobacco Use Types Packs/Day Years [...] on filedocumented in this encounter Care Teams Processor Grain Relationship Specialty Start Date End Date Quinn Nino MD [address] [place] [address] [place] [address] PCP - General 02/27/17 10/21/22 documented as of this encounter
--- OUTSIDE RECORDS SUMMARY | 2024-10-19 16:35 | XMS_ITS | Encounter Summary ---
Author Organization [facility] Address [address] [place] [address] Phone Care Team Providers Care Viticulturist Name Role Phone Quinn Nino MD Primary Care Provider [phone] Encounter Details Date Type Department Care Team (Late st Contact Info) Description 03/05/2017 Conversion Encounter [facility] [place] [address] [place] [address] Social History Tobacco Use Types Packs/Day Years [...] on filedocumented in this encounter Care Teams Viticulturist Relationship Specialty Start Date End Date Quinn Nino MD [address] [place] [address] PCP - General 02/27/17 10/21/22 documented as of this encounter
--- OUTSIDE RECORDS SUMMARY | 2024-10-19 16:35 | XMS_ITS | Encounter Summary ---
Author Organization [facility] Address [address] [place] [address] Phone Care Team Providers Care Chief Librarian Circulation Department Name Role Phone Quinn Nino MD Primary Care Provider [phone] Encounter Details Date Type Department Care Team (Late st Contact Info) Description 12/12/2011 Documentation EM Family Medicine [address] [place] [address] Family Medicine, Physician [address] [place] [address] Social History Tobacco Use Types Packs/Day Years [...] on filedocumented in this encounter Care Teams Chief Librarian Circulation Department Relationship Specialty Start Date End Date Quinn Nino MD [address] [place] [address] [place] [address] PCP - General 02/27/17 10/21/22 documented as of this encounter
== END 2024-10-19 14:47 | disposition home or self-care (01) ==
LOC: HO.HMCH 13:54
PROVIDERS: PCP Physician Assistant; Visit Provider Physician Assistant
DX: I10 Essential (primary) hypertension (principal); G47.33 Obstructive sleep apnea (adult) (pediatric)

== ENCOUNTER → 2024-10-19 13:53 | Outpatient (BNVA) | payer MEDICARE, MEDICAID, SELFPAY | PROVIDERS: PCP Physician Assistant; Visit Provider Physician Assistant | DX: I10 Essential (primary) hypertension (principal); G47.33 Obstructive sleep apnea (adult) (pediatric) | CPT/HCPCS: 99212 ==

== ENCOUNTER → 2025-01-09 15:00 | Outpatient (REF) | payer MEDICARE, MEDICAID, SELFPAY ==
--- OUTSIDE RECORDS SUMMARY | 2025-01-09 16:35 | XMS_ITS | Encounter Summary ---
Author Organization [facility] Address [address] [place] [address] Phone Care Team Providers Care Champion Of Sustainable Design Name Role Phone Quinn Nino MD Primary Care Provider [phone] Encounter Details Date Type Department Care Team (Late st Contact Info) Description 12/12/2011 Documentation EM Family Medicine [address] [place] [address] Family Medicine, Physician [address] [place] [address] Social History Tobacco Use Types Packs/Day Years [...] on filedocumented in this encounter Care Teams Champion Of Sustainable Design Relationship Specialty Start Date End Date Quinn Nino MD [address] [place] [address] [place] [address] PCP - General 02/27/17 10/21/22 documented as of this encounter
== END ==
LOC: HO.SL 15:00
PROVIDERS: PCP Physician Assistant; Visit Provider Physician Assistant
DX: G47.33 Obstructive sleep apnea (adult) (pediatric) (principal); R06.83 Snoring; R40.0 Somnolence
CPT/HCPCS: 95806

== ENCOUNTER → 2025-01-09 15:20 | Outpatient (BNV) | payer MEDICARE, MEDICAID, SELFPAY | PROVIDERS: PCP Physician Assistant; Visit Provider Internal Medicine | DX: G47.33 Obstructive sleep apnea (adult) (pediatric) (principal) | CPT/HCPCS: 95806 ==

== ENCOUNTER 2025-01-19 10:16 | Outpatient (AMB) | payer MEDICARE, MEDICAID, SELFPAY ==
--- OUTSIDE RECORDS SUMMARY | 2025-01-19 10:58 | XMS_ITS | Encounter Summary ---
Author Organization [facility] Address [address] [place] [address] Phone Care Team Providers Care Slope Hoist Operator Name Role Phone Quinn Nino MD Primary Care Provider [phone] Encounter Details Date Type Department Care Team (Late st Contact Info) Description 12/12/2011 Documentation EM Family Medicine [address] [place] [address] Family Medicine, Physician [address] [place] [address] Social History Tobacco Use Types Packs/Day Years [...] on filedocumented in this encounter Care Teams Slope Hoist Operator Relationship Specialty Start Date End Date Quinn Nino MD [address] [place] [address] [place] [address] PCP - General 02/27/17 10/21/22 documented as of this encounter
--- OUTSIDE RECORDS SUMMARY | 2025-01-19 10:58 | XMS_ITS | Clinical Summary ---
Author Organization [facility] Address [address] [place] [address] Care Team Providers Care Funeral Pre Arrangement Specialist Name Role Phone Unavailable Primary Care Provider [...] Vaccine (2023-2 5 season) 2024 Influenza Vaccine (Season Ended) 2025 HIB Vaccines Aged Out No longer eligi [...] age to complete this topic Meningococcal B Vaccine Aged Out No l onger eligible based on patient's age to complete [...]
[2025-01-19 11:04] VITALS: BP 182/118; PULSE 68; TEMP 36.8; O2SAT 98; BMI 32.4
--- NOTE | 2025-01-19 11:04 | MHC.OFFWIV ---
Intake Vital Signs 01/19/25 11:04 Height 5 ft 8 in Weight 213 lb BMI 32.4 BP 182/118 H Blood Pressure Location Lt brachial Pulse 68 Pulse Source Pulse Oximeter Temp 98.3 F Temp Source Oral Pulse Oximetry (%) 98 Oxygen Delivery Method Room Air Intake Visit Reasons: EP Back pain Intake Note: presents with left lower back pain since yesterday, denies injury Patient Tobacco Use Status: Never used Tobacco Allergies No Known Allergies Allergy (Verified 01/19/25 11:06) Do you need a note to return to daycare/school/sports/work: Yes HPI HPI Comments History of Present Illness Details 29 y/o Male patient who presents to the walk in clinic with c/o Right sided lower back pain since yesterday. 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 Denies urinary or bowel symptoms. His BP elevated today, he has not been taking his New Dose of HCTZ/Lisinopril for 1 month now. [facility] Medical History (Updated 01/19/25 @ 11:35 by Rosibel Castañeda NP) Lumbar pain Obesity (BMI 30-39.9) Essential (primary) hypertension Surgical History No pertinent past surgical history Family History Father Hypertension Mother Hypertension Social History Housing: Apartment Alcohol intake: current Alcohol intake frequency: holidays/special occasions only Patient Tobacco Use Status: Never used Tobacco e-Cigarette/Vaping Use: Never Used Second Hand Smoke Exposure: Yes service: No Current occupational status: employed Current occupation: [employer] Cognitive needs: No Hearing needs: No Vision needs: No Review of Systems Const All systems reviewed & are unremarkable except as noted in HPI and below Physical Exam Vital Signs: Last Vital Signs Temp 98.3 F 01/19/25 11:04 Pulse 68 01/19/25 11:04 BP 182/118 H 01/19/25 11:04 Pulse Ox 98 01/19/25 11:04 Oxygen Delivery Method Room Air 01/19/25 11:04 BMI result Body Mass Index 32.4 Const General: no acute distress Nutritional Appearance: overweight Orientation/consciousness: patient oriented x3 Resp Effort & Inspection: normal respiratory effort Auscultation: clear to auscultation bilaterally Cardio Heart sounds: S1 normal heart sound present and S2 normal heart sound present Back/Spine/Pelvis Back: back tenderness Thoracic/Lumbar Spine: pain with thoraco-lumbar ROM, thoraco-lumbar spasm and lumbar spinal tenderness Neuro General: patient oriented x3, gait normal and moves all extremities Assessment & Plan Assessment & Plan (1) Lumbar pain: Code(s): M54.50 - Low back pain, unspecified Plan: Ordered Physical Therapy Advised to use Acetaminophen for pain relief Ice/Hot Rest Sent a New Rx for HCTZ/Lisinopril. Discussed in length the importance of treating High BP, and making lifestyle changes such as weight loss, low salt, and routine exercise. Orders: Orders PT Evaluation and Treatment Today M54.50 - Low back pain, unspecified Medications: New acetaminophen 1,000 mg (2 x 500 mg) PO Q6H PRN 30 caps 0RF pain M54.50 - Low back pain, unspecified cyclobenzaprine 10 mg PO BEDTIME 14 tabs 0RF M54.50 - Low back pain, unspecified Refilled lisinopril-hydrochlorothiazide 10-12.5 mg 1 tab PO DAILY 30 tabs 0RF I10 - Essential (primary) hypertension Coding Level of Care Code Est Pt Level 4 (31918) Diagnoses Lumbar pain M54.50 Time Spent (min) 20
== END 2025-01-19 12:03 | disposition home or self-care (01) ==
PROVIDERS: PCP Physician Assistant; Visit Provider Nurse Practitioner Family
DX: M54.50 Low back pain, unspecified (principal)

== ENCOUNTER → 2025-01-19 10:16 | Outpatient (BNVA) | payer MEDICARE, MEDICAID, SELFPAY | PROVIDERS: PCP Physician Assistant; Visit Provider Nurse Practitioner Family | DX: M54.50 Low back pain, unspecified (principal) | CPT/HCPCS: 99212 ==